=== PATIENT | female | born 1935 | race Caucasian/White ===

== ENCOUNTER → 2016-07-17 | Outpatient (CLI) | payer OTHER, MEDICARE ==
[2010-10-12 08:06] VITALS: BP 106/62
[2016-07-17 08:15] LABS: BUN/CREATININE RATIO 34.44 (6-20); CALCIUM 9.9 mg/dL (8.7-10.7); CREATININE 0.9 mg/dL (0.50-1.20); POTASSIUM 4.8 meq/L (3.8-5.2)
== END ==
LOC: LAB 07:51
PROVIDERS: ATTEND Internal Medicine
DX: M81.0 Age-related osteoporosis without current pathological fracture (principal)
CPT/HCPCS: 36415; 80048

== ENCOUNTER → 2016-08-06 | Outpatient (CLI) | payer OTHER, MEDICARE ==
[2010-10-12 08:06] VITALS: BP 106/62
[2016-08-06 08:00] LABS: BASOPHILS # (AUTO) 0.04 10*3/UL; BASOPHILS % (AUTO) 0.6 % (0-1); EOSINOPHILS # (AUTO) 0.27 10*3/UL; HEMATOCRIT 34.3 % (37.0-47.0); HEMOGLOBIN 11.1 g/dL (12.0-16.0); LYMPHOCYTES # (AUTO) 2.82 10*3/uL; MEAN CORPUSCULAR HEMOGLOBIN 30.7 PG (27-31); MEAN CORPUSCULAR HGB CONC 32.4 g/dL (33-37); MEAN CORPUSCULAR VOLUME 94.8 FL (81-99); MEAN PLATELET VOLUME 11.1 FL (7.4-12.2); MONOCYTES # (AUTO) 0.68 10*3/UL (0.3-0.8); NEUTROPHILS # (AUTO) 2.95 10*3/UL; NEUTROPHILS % (AUTO) 43.5 % (50-80); RED BLOOD COUNT 3.62 10^6/uL (4.20-5.40)
[2016-08-06 08:05] LABS: PLATELET MORPHOLOGY COMMENT NORMAL MORPHOLOGY (NORM); RBC MORPHOLOGY COMMENT NORMAL MORPHOLOGY (NORM); WBC MORPHOLOGY COMMENT NORMAL MORPHOLOGY (NORM)
[2016-08-06 08:31] LABS: BUN/CREATININE RATIO 33.33 (6-20); CHOL/HDL RATIO 2.5 RATIO (0-4.0); LDL CHOLESTEROL,CALCULATED 81.6 mg/dL; SERUM ALBUMIN 3.9 g/dL (3.5-4.8)
== END ==
LOC: LAB 07:46
PROVIDERS: ATTEND Internal Medicine
DX: D64.9 Anemia, unspecified (principal); E03.9 Hypothyroidism, unspecified; I10 Essential (primary) hypertension; E78.5 Hyperlipidemia, unspecified
CPT/HCPCS: 36415; 80053; 80061; 84443; 85025

== ENCOUNTER → 2016-08-07 | Outpatient (CLI) | payer OTHER, MEDICARE ==
[2010-10-12 08:06] VITALS: BP 106/62
== END ==
LOC: MMPC 11:11
PROVIDERS: ATTEND Internal Medicine
DX: M81.0 Age-related osteoporosis without current pathological fracture (principal); M54.17 Radiculopathy, lumbosacral region; D64.9 Anemia, unspecified; E03.9 Hypothyroidism, unspecified
CPT/HCPCS: 99214; G0463

== ENCOUNTER → 2016-09-04 | Outpatient (CLI) | payer OTHER, MEDICARE ==
[2010-10-12 08:06] VITALS: BP 106/62
== END ==
LOC: MMPC 10:00
PROVIDERS: ATTEND Neurological Surgery
DX: M54.16 Radiculopathy, lumbar region (principal)
CPT/HCPCS: 99213; G0463

== ENCOUNTER → 2016-09-06 | Outpatient (CLI) | payer OTHER, MEDICARE ==
[2010-10-12 08:06] VITALS: BP 106/62
--- NOTE | 2016-09-06 09:57 | DI ---
MRI LUMBAR SPINE SCAN WITHOUT IV CONTRAST, 09/06/2016 8:50 AM: Clinical History: Right lumbar radiculopathy. Previous Exam: 11/15/2015. Technique: Sagittal and axial T2 weighted; sagittal T1 weighted and T2 STIR; and axial PD. The lumbar vertebral bodies are of normal height and size. There is an old compression fracture of T1 2 with loss of height greater than 50%. The superior and posterior margin of the T12 vertebral body d oes project into the canal. The cord terminates at T12-L1 and the conus medullaris is normal. The T9- 10 and T10-11 disc spaces are normal. Even though there is projection of the superior and posterior m argin of T12 into the canal, there is no canal stenosis. The T11-12 and T12-L1 disc spaces are normal . L1-2 has a right-sided focal disc herniation associated with the disc annulus tear. There is no can al or neural foraminal stenosis. L2-3 and L3-4 both have mild circumferentially bulging but not herni ated discs without canal or neural foraminal stenosis. L4-5 has a circumferentially bulging but not h erniated disc without canal or significant left neural foraminal stenosis. There is a right neural fo raminal stenosis. L5-S1 has a central bulging but not herniated disc without canal or neural foramina l stenosis. Readin. There is an old compression fracture of T12 with loss of height greater than 50% and with project ion of the posterior and superior margin into the canal. However, there is no canal stenosis associat ed with the projection of the vertebral body into the canal. 2. There is a right focal disc herniation at L1-2 without canal or neural foraminal stenosis. There is a right-sided disc annulus tear. 3. L4-5 has a bulging disc with right neural foraminal stenosis. There is no canal or left neural fo raminal stenosis. 4. There are bulging but not herniated discs without canal or neural foraminal stenosis at L2-3, L3- 4, and L5-S1. 5. The disc spaces from T9-10 through T12-L1 are normal.
== END ==
LOC: MRI 09:00
PROVIDERS: ATTEND Neurological Surgery
DX: M54.16 Radiculopathy, lumbar region (principal); M51.26 Other intervertebral disc displacement, lumbar region; M47.817 Spondylosis without myelopathy or radiculopathy, lumbosacral region
CPT/HCPCS: 72148

== ENCOUNTER 2016-09-26 07:52 | Day surgery (SDC) | payer OTHER, MEDICARE ==
[2016-09-26] MEDS ORDERED: Iopamidol Inj 61% 50 ML VIAL IV ONE (08:00)
[2016-09-26] MEDS ORDERED: TRIAMCINOLONE ACETONIDE 40 MG/1 ML IM ONE (08:00)
[2016-09-26] MEDS ORDERED: BUPivacaine Inj 0.25% PF - 10ml vial IV ONE (08:00)
[2016-09-26 08:43] VITALS: RESP 16; TEMP 97.7
--- NOTE | 2016-09-26 08:46 | GEN.OPNOTE ---
Transforaminal [facility] Procedure Code - Neurosurgery: 73648 : Lumbar Transforaminal Epidural -: Consent: Rationale for procedure, nature of procedure, possible risks and benefits were discussed with the patient. Risks including allergic reaction to medications, known effects of steroid medications including transient elevation in blood sugar with aggravation of pre-existing diabetes and remote risk of aseptic necrosis of the hip. Pain at the injection site, inadvertent dural puncture with resultant in CSF leak and headache possibly requiring further treatment. Infection or bleeding with potential risk of neurologic injury with weakness, paralysis or were all reviewed with the patient who wished to proceed. Anesthesia, sedation: No intravenous access or sedation was used. Physiologic monitoring of pulse and oxygen saturation was utilized. Procedure: The patient was placed prone on the operating room table, prepped with Chloraprep and sterilely draped. The skin was anesthetized with 1% Buffered Xylocaine. Under fluoroscopic control a 22-gauge Touhy needle was advanced into the area of the Kambin's triangle at the [L4] level. Imaging confirmation of needle placement in the posterior, inferior and lateral quadrant of the foramen was obtained. Omnipaque was injected under real-time fluoroscopy demonstrating and epidurogram. Following this [1] ml of a mixture of Kenalog (40mg/ml) and 1% ropivacaine was injected. AP and lateral images of the final needle placement was obtained. The needle was removed and the patient returned to the post procedure recovery room where they were monitored for any side effects. Pain assessment: Preprocedure pain []/10, post procedure pain []/10. Discharge instructions: Patient was given a pain log to be filled out and returned. A delayed response to the steroids of 2-5 days was discussed.
== END 2016-09-26 08:45 | disposition home or self-care (01) ==
LOC: SDSC 07:52
PROVIDERS: ATTEND Pain Medicine Interventional Pain Medicine
DX: M54.5 Low back pain (principal); M51.16 Intervertebral disc disorders with radiculopathy, lumbar region
CPT/HCPCS: 76000